=== PATIENT | male | born 1985 | race Hispanic/Latino ===

== ENCOUNTER 2019-12-14 11:52 | Emergency (ER) | payer SELFPAY ==
--- NOTE | 2019-12-14 12:51 | RAD REPORT ---
EXAM DESCRIPTION: RAD - Hand Right 3 View - 12/14/2019 12:45 pm CLINICAL HISTORY: Right hand pain status post injury FINDINGS: A fracture involves the mid aspect of the fourth metacarpal with marked displacement of fr acture fragments and angulation present at fracture site. No dislocation noted Appears to be an old ununited fracture of the distal scaphoid
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
[2019-12-14] MEDS ORDERED: HYDROCODONE/APAP 7.5/325 MG TAB ONE (13:26)
[2019-12-14 14:27] VITALS: BP 107/68; TEMP 98.3; O2SAT 100
== END 2019-12-14 14:17 | disposition home or self-care (01) ==
LOC: ER 11:52
PROC: 2W3CX1Z Immobilization of Right Lower Arm using Splint (ICD-10-PCS; principal; 2019-12-14)
DX: S62.324A Displaced fracture of shaft of fourth metacarpal bone, right hand, initial encounter for closed fracture (principal); W22.8XXA Striking against or struck by other objects, initial encounter; Y93.9 Activity, unspecified; Y92.9 Unspecified place or not applicable; Z88.5 Allergy status to narcotic agent
CPT/HCPCS: 99284

== ENCOUNTER 2019-12-22 09:06 | Day surgery (SDC) | payer SELFPAY ==
[2019-12-22] MEDS ORDERED: CEFAZOLIN/SWI 1gm 1 GM/10 ML SYR ONE (09:20)
[2019-12-22] MEDS ORDERED: Ringers Lactate 1,000 ML IV ONE (09:20)
[2019-12-22] MEDS ORDERED: KETOROLAC 30 MG/ML INJ ONE (09:36)
[2019-12-22] MEDS ORDERED: propofoL 200 MG/20 ML VIAL IV ONE (09:36)
[2019-12-22] MEDS ORDERED: LIDOCAINE 2% MPF 5 ML VIAL ONE (09:36)
[2019-12-22] MEDS ORDERED: FENTANYL CITR 100 MCG/2 ML ONE (09:36)
[2019-12-22] MEDS ORDERED: MIDAZOLAM HCL 2 MG/2 ML INJ ONE (09:37)
[2019-12-22] MEDS ORDERED: GLYCOPYRROLATE 0.2 MG/ML SYR ONE (10:09)
[2019-12-22] MEDS ORDERED: MORPHINE 10 MG/ML VIAL ONE (10:35)
[2019-12-22] MEDS ORDERED: Mastisol Adhesive Liq ONE (10:41)
[2019-12-22] MEDS: MEPERIDINE HCL 25 MG/0.5 ML ONE ×2 (11:12→11:17)
[2019-12-22] MEDS: MORPHINE 4 MG/ML SYR ONE ×2 (11:14→11:19)
[2019-12-22] MEDS ORDERED: ONDANSETRON 4 MG/2 ML VIAL ONE (11:16)
[2019-12-22] MEDS: HYDROMORPHONE HCL 1 MG/ML INJ ONE ×4 (11:20→11:45)
[2019-12-22] MEDS ORDERED: PROMETHAZINE INJ 25 MG/ML AMP ONE (11:39)
[2019-12-22] MEDS ORDERED: CODEINE 30MG/APAP 300MG TAB ONE (12:21)
--- NOTE | 2019-12-22 12:36 | RAD REPORT ---
EXAM DESCRIPTION: RAD - Hand Right 3 View - 12/22/2019 10:44 am CLINICAL HISTORY: PINNING IN OR 4 COMPARISON: Hand Right 3 View dated 12/14/2019 FINDINGS: A total of 3 portable intraoperative C-arm views were submitted. Images show fixation of a previously detailed a fourth metacarpal fracture. No suspicious or unexpected finding. Fluoro time was less than 0.1 minutes. Total cumulative dose measured at 0.0412 mGy. IMPRESSION: Right hand intraoperative fixation images as detailed.
[2019-12-22 13:36] VITALS: BP 107/64; TEMP 98.6; O2SAT 98
--- NOTE | 2019-12-22 21:47 | OP ---
Surgeon: Angelo Carpio MD Preoperative Diagnosis: Fracture of right fourth metacarpal. Postoperative Diagnosis: Fracture of right fourth metacarpal. Procedure Performed: Open reduction internal fixation, and splint. Anesthesia: General. Procedure In Detail: After satisfactory induction of general anesthesia, attempts were made to do a closed reduction. The fracture was approximately 2 to 3-week-old, would not reduce. For that reason, hand was then prepped with Betadine scrub, Betadine paint, dry sterile drapes applied in the usual manner. The arm was elevated, exsanguinated with an Esmarch. Tourniquet was inflated 250 mmHg. Curvilinear incision was made over the dorsum of the fracture of the fourth metacarpal of midshaft. Dissection proceeded down, tendon was retracted and dissected down to the hematoma. The wound was opened, the periosteum was elevated as needed. The callus was debrided as needed. Despite traction could not be , we took the saw to cut 90 degrees distally first then proximally and then K-wires 0.045 were passed into distal fracture of the metacarpal and then from distal to proximal impaling the proximal fracture fragment. C-arm revealed adequate reduction and the pins were was cut and bent. The wound was then closed after tourniquet released. Electrocautery was used for hemostasis. Closure consisted of 3-0 Vicryl on the periosteum, 3-0 Vicryl subcu, and then 3-0 PDS interrupted sutures followed by tincture of benzoin, Steri-Strips, Kerlix, and a splint holding the wrist in 10 degrees of dorsiflexion, MCP 90, PIP and DIP 0. Patient tolerated the procedure well and returned to Recovery. RASHID/VANESSA Voice ID: [id number] Report ID: [id number] SHIRIN
== END 2019-12-22 12:38 | disposition home or self-care (01) ==
LOC: OR 09:06
PROVIDERS: ATTEND Specialist
PROC: 0PSP04Z Reposition Right Metacarpal with Internal Fixation Device, Open Approach (ICD-10-PCS; principal; 2019-12-22 11:00)
DX: S62.304A Unspecified fracture of fourth metacarpal bone, right hand, initial encounter for closed fracture (principal); F17.200 Nicotine dependence, unspecified, uncomplicated
CPT/HCPCS: J0690; J1170; J2175; J2250; J2405; J2550; J2704; J3010; J7120

== ENCOUNTER 2021-10-07 10:48 | Emergency (ER) | payer SELFPAY ==
[2021-10-07] MEDS ORDERED: IBUPROFEN 400 MG TAB ONE (12:41)
[2021-10-07] MEDS ORDERED: IBUPROFEN 200 MG TAB PO ONE (12:41)
--- NOTE | 2021-10-07 13:46 | RAD REPORT ---
EXAM DESCRIPTION: RAD - Ankle Left 3 View - 10/07/2021 12:07 pm CLINICAL HISTORY: PAIN COMPARISON: <Comparisons> FINDINGS: Mild soft tissue swelling is seen about the ankle. Bony fragmentation inferior to the dist al fibula has the appearance of bony fragmentation related to prior trauma. No definitive acute fract ure.
--- NOTE | 2021-10-07 13:59 | EDPHYS ---
Physician Documentation [facility] Name: Randall Begum Age: 36 yrs Sex: Male : 1985 Arrival Date: 10/07/2021 Time: 10:49 Bed 10 Private MD: ED Physician Bernard Dodson HPI: 10/07 15:29 This 36 yrs old Male presents to ER via EMS with complaints of Ankle Injury. kb 15:29 The patient presents with pain, swelling, tenderness. The complaints affect the left kb ankle. Onset: The symptoms/episode began/occurred last night. Context: The problem was sustained at home, resulted from an unknown cause, The patient can fully bear weight on the affected extremity. the patient is able to ambulate. Associated signs and symptoms: Pertinent positives: swelling, Pertinent negatives: calf tenderness, fever, nausea, numbness, rash, tingling, vomiting, warmth, weakness. Modifying factors: The symptoms are alleviated by nothing, the symptoms are aggravated by weight bearing, movement. Severity of symptoms: At their worst the symptoms were moderate, in the emergency department the symptoms are unchanged. The patient has not experienced similar symptoms in the past. The patient has not recently seen a physician. Pt reports he thinks he jumped and landed wrong on ankle last night. Reports pain and swelling to ankle today. Historical: - Allergies: 11:35 Codeine; ss - Immunization history:: Client reports having NOT received the Covid vaccine. - Social history:: Smoking status: Patient reports the use of cigarette tobacco products, smokes one pack cigarettes per day. ROS: 15:26 Constitutional: Negative for fever, chills, and weight loss. kb 15:26 MS/extremity: Positive for pain, of the left lateral ankle. 15:26 All other systems are negative. Exam: 15:27 Constitutional: This is a well developed, well nourished patient who is awake, alert, kb and in no acute distress. Head/Face: Normocephalic, atraumatic. Respiratory: Respirations even and unlabored. No increased work of breathing. Talking in full sentences Skin: Warm, dry with normal turgor. Normal color. Neuro: Awake and alert, GCS 15, oriented to person, place, time, and situation. Moves all extremities. Normal gait. Psych: Awake, alert, with orientation to person, place and time. Behavior, mood, and affect are within normal limits. 15:27 Musculoskeletal/extremity: Extremities: grossly normal except: noted in the left lateral ankle: pain, swelling, tenderness, ROM: intact in all extremities, Circulation is intact in all extremities. Sensation intact. Weight bearing: able to fully bear weight. Vital Signs: 11:34 Pulse 95; Resp 15; Temp 98.4(TE); Pulse Ox 99% on R/A; Weight 65.77 kg; Pain 10/10; ss 11:36 BP 119 / 74; ss 12:32 BP 128 / 75; Pulse 87; Resp 18 S; Pulse Ox 97% on R/A; as6 MDM: 12:23 Patient medically screened. kb 15:26 Data reviewed: vital signs, nurses notes. Data interpreted: Pulse oximetry: on room air kb is 97 %. Interpretation: normal. Counseling: I had a detailed discussion with the patient and/or guardian regarding: the historical points, exam findings, and any diagnostic results supporting the discharge/admit diagnosis, radiology results, the need for outpatient follow up, a orthopedic surgeon, to return to the emergency department if symptoms worsen or persist or if there are any questions or concerns that arise at home. 10/07 11:36 Order name: XRAY Ankle LEFT 3 view; Complete Time: 13:47 ss 10/07 13:47 Order name: Short Leg Splint; Complete Time: 14:21 kb 10/07 13:47 Order name: Crutches; Complete Time: 14:21 kb Administered Medications: 12:43 Drug: Ibuprofen 600 mg Route: PO; as6 13:26 Follow up: Response: No adverse reaction as6 Disposition: 16:48 Co-signature as Attending Physician, Bernard Dodson MD I agree with the assessment and rn plan of care. Attestation: The patient's history, exam findings, diagnostics, and a summary of any interventions or procedures was reviewed in detail with Joy JOSÉ. Disposition Summary: 10/07/21 13:59 Discharge Ordered Location: Home Condition: Stable kb Diagnosis - Sprain of ankle kb Followup: kb - With: Emergency Department - When: As needed - Reason: Worsening of condition Followup: kb - With: Private Physician - When: 2 - 3 days - Reason: Recheck today's complaints, Continuance of care, Re-evaluation by your physician Discharge Instructions: - Discharge Summary Sheet kb - Ankle Sprain, [id number] kb Forms: - Medication Reconciliation Form kb - Thank You Letter kb - Antibiotic Education kb - Prescription Opioid Use kb Signatures: Dispatcher [employer] EDMS Joy Dickens, DENTAL TECHNICIAN INSTRUCTOR-C DENTAL TECHNICIAN INSTRUCTOR-Ckb Bernard Dodson MD MD rn Smirch, Shelby, RN RN ss Saman Ross RN RN as6 Corrections: (The following items were deleted from the chart) 11:10 10:56 Ankle Left 3 View+RAD.RAD.BRZ ordered. EDMS EDMS 15:29 15:26 MS/extremity: Positive for pain, of the right knee, kb kb
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
[2021-10-07 14:42] VITALS: TEMP 98.4
[2021-10-07 14:45] VITALS: BP 128/75; O2SAT 97
== END 2021-10-07 14:36 | disposition home or self-care (01) ==
LOC: ER 10:48
DX: S93.402A Sprain of unspecified ligament of left ankle, initial encounter (principal); F17.210 Nicotine dependence, cigarettes, uncomplicated; Z88.5 Allergy status to narcotic agent
CPT/HCPCS: 99284